=== PATIENT | female | born 2000 | race Two or more races ===

== ENCOUNTER 2021-04-12 22:46 | Emergency (ER) | payer OTHER ==
[~2021-04-12] VITALS: Ht 162.6 cm; Wt 57.3 kg
[2021-04-12 23:30] VITALS: BP 110/64
== END 2021-04-13 01:12 | disposition home or self-care (01) ==
LOC: EMS 22:46
DX: R10.2 Pelvic and perineal pain (principal)
CPT/HCPCS: 76856; 99284; Z7502